=== PATIENT | female | born 1935 | race Caucasian/White ===

== ENCOUNTER 2019-03-13 19:03 | Inpatient (IN) | payer MEDICARE, OTHER ==
[~2019-03-13] VITALS: Ht 160 cm; Wt 66.7 kg
[2019-03-13 19:13] VITALS: BP 136/56
[2019-03-13] MEDS ORDERED: ASPIR 8181 MG PO (19:22)
[2019-03-13] MEDS ORDERED: CALCIUM500 M1 PO (19:23)
[2019-03-13] MEDS ORDERED: BENAZEPRIL HCL20 MG PO (19:23)
[2019-03-13] MEDS ORDERED: CLARITIN10 MG PO (19:24)
[2019-03-13] MEDS ORDERED: VITAMIN D3400 UNIT PO ×2 (19:24→19:26)
[2019-03-13] MEDS ORDERED: OMEGA-31000 M1 PO (19:24)
[2019-03-13] MEDS ORDERED: HYDROCHLOROTH12.5 M1 PO (19:24)
[2019-03-13] MEDS ORDERED: TOPROL XL100 MG PO (19:25)
[2019-03-13] MEDS ORDERED: METFORMIN HCL500 MG PO (19:25)
[2019-03-13] MEDS ORDERED: NAMENDA 10 MG T10 MG PO (19:25)
[2019-03-13] MEDS ORDERED: MIRALAX17 GM PO (19:26)
[2019-03-13] MEDS ORDERED: UNICOMPLEX M TA1 TA1 PO (19:26)
[2019-03-13] MEDS ORDERED: ZOCOR20 MG PO (19:26)
[2019-03-13] MEDS ORDERED: NORVASC5 MG PO (19:27)
[2019-03-13 19:53] LABS: HEMOGLOBIN 12.7 gm/dL (12.0-15.0); MCH 30.7 pg (26.0-34.0); MCHC 33.3 g/dL (28.0-37.0); MCV 92.2 fL (80.0-100.0); MPV 8.7 fl. (7.2-11.1); NUCLEATED RBCS 0 /100WBC; PLATELET COUNT* 301 thou/uL (150-400); RBC 4.12 mil/uL (4.20-5.00); RDW-CV 13.2 % (10.5-14.5); WBC 15.6 thou/uL (4.0-11.0)
[2019-03-13 20:03] LABS: ANION GAP 10 mmol/L (7-16); BUN 24 mg/dL (7-18); CALCIUM 9.3 mg/dL (8.5-10.1); CHLORIDE 91 mmol/L (98-107); CO2 27 mmol/L (21-32); CREATININE 1.3 mg/dL (0.6-1.3); GLUCOSE 221 mg/dL (70-99); INR 1.1; POTASSIUM 3.7 mmol/L (3.5-5.1); SODIUM 128 mmol/L (136-145)
[2019-03-13 20:13] LABS: ALBUMIN 3.7 g/dL (3.4-5.0); ALKALINE PHOSPHATASE 75 U/L (46-116); LIPASE 98 U/L (73-393); NT-PRO BRAIN NAT PEPTIDE 1801 pg/mL (<300); SGOT 14 U/L (15-37); SGPT 18 U/L (30-65); TOTAL BILIRUBIN 0.9 mg/dL (<0.1-1.0); TROPONIN-I LEVEL <0.06 ng/mL (<0.06); URIC ACID* 4.7 mg/dL (2.6-7.2)
[2019-03-13 20:14] LABS: ABSOLUTE LYMPHOCYTES 0.8 thou/uL (0.8-5.3); ABSOLUTE MONOCYTES 0.9 thou/uL (0.0-1.2); ABSOLUTE NEUTROPHILS 13.9 thou/uL (1.6-8.1); PLATELET ESTIMATE ADEQUATE
[2019-03-13 22:01] LABS: URINE BILIRUBIN NEGATIVE (Negative); URINE BLOOD TRACE (Negative); URINE CLARITY CLEAR; URINE COLOR YELLOW; URINE GLUCOSE-RANDOM TRACE (Negative); URINE KETONES TRACE (Negative); URINE LEUKOCYTES-REFLEX 1+ (Negative); URINE NITRITE-REFLEX NEGATIVE (Negative); URINE PROTEIN NEGATIVE (Negative); URINE SPECIFIC GRAVITY 1.015 (1.005-1.030); URINE UROBILINOGEN 0.2 E.U./dl (0.2-1.0)
[2019-03-13 22:07] LABS: CASTS None Seen /LPF (None Seen); MUCUS 0-3 Light strn/LPF (None Seen); SQUAMOUS 0-3 Few /LPF (0-3); URINE RBC 3-10 Few /HPF (0-2); URINE WBC-REFLEX 6-15 Few /HPF (0-5); WBC CLUMPS Few (None Seen)
[2019-03-13 22:08] LABS: CRYSTALS None Seen /LPF (None Seen)
[2019-03-13 22:50] VITALS: BP 121/47
[2019-03-13 23:06] VITALS: BP 104/54
[2019-03-14 02:00] LABS: CREATININE 1.1 mg/dL (0.6-1.3); POTASSIUM 3.5 mmol/L (3.5-5.1)
[2019-03-14 04:00] VITALS: BP 119/41
[2019-03-14 08:00] VITALS: BP 114/59
[2019-03-14 09:00] LABS: BF LYMPHOCYTES 8 %; BF MONOCYTES 1 %; BF POLYS 91 %; BF TISSUE 1 /100 WBC
[2019-03-14 09:23] LABS: BF RBC 52896 /mm3; CLARITY CLOUDY; TOTAL CELL COUNT 37344 /mm3; TOTAL VOLUME 20 ml
[2019-03-14 09:24] LABS: SOURCE LEFT KNEE
[2019-03-14 09:55] LABS: ABSOLUTE LYMPHOCYTES 1.4 thou/uL (0.8-5.3); ABSOLUTE MONOCYTES 1.1 thou/uL (0.0-1.2); BASOPHILS 0.4 %; HEMATOCRIT 32.8 % (37.0-47.0); LYMPHOCYTES 11.2 %; MCHC 33.5 g/dL (28.0-37.0); MCV 92.6 fL (80.0-100.0); MONOCYTES 8.8 %; MPV 9.1 fl. (7.2-11.1); NUCLEATED RBCS 0 /100WBC; PLATELET COUNT* 250 thou/uL (150-400); POLYS 79.6 %; RBC 3.54 mil/uL (4.20-5.00); RDW-CV 13.3 % (10.5-14.5); WBC 12.5 thou/uL (4.0-11.0)
[2019-03-14 11:30] VITALS: BP 121/50
--- NOTE | 2019-03-14 11:49 | EKG ---
[place] [address] ELECTROCARDIOGRAM REPORT Name: MICHAEL HYATT Room: [address] ADM IN .R.#: [id number] Admission: 03/13/19 Attend Phys: Lizbeth Figueroa MD Discharge: Date of : 37 Report #: [id number] THIS REPORT FOR: //name// [facility] ED Test Date: 2019-03-13 Test Time: 20:21:47 Pat Name: MICHAEL HYATT Department: Room: [facility] Gender: F Powerhouse Tender: AJ : 1935 Requested By: Matthieu Strong Order Number: [id number] MD: Vern Celis Measurements Intervals [place] Rate: 73 P: 57 FL: 166 QRS: -27 QRSD: 88 T: 25 QT: 402 QTc: 443 Interpretive Statements Sinus rhythm Atrial premature complexes in couplets Left ventricular hypertrophy Baseline wander in lead(s) III No previous ECG available for comparison Electronically Signed On 03-14-2019 11:49:43 CDT by Vern Celis [email or web address] <ELECTRONICALLY SIGNED> By: Vern Celis MD, [facility] 03/14/19 1149 20 20 Vern Celis MD, [facility] /EPI
[2019-03-14 16:31] VITALS: BP 145/48
[2019-03-14 19:30] VITALS: BP 136/53
[2019-03-15] VITALS: BP 105/40
[2019-03-15 04:00] VITALS: BP 136/51
[2019-03-15 04:43] LABS: ABSOLUTE BASOPHILS 0.1 thou/uL (0.0-0.2); ABSOLUTE EOSINOPHILS 0.1 thou/uL (0.0-0.7); ABSOLUTE LYMPHOCYTES 1.1 thou/uL (0.8-5.3); ABSOLUTE MONOCYTES 0.8 thou/uL (0.0-1.2); ABSOLUTE NEUTROPHILS 7.3 thou/uL (1.6-8.1); BASOPHILS 0.6 %; EOSINOPHILS 0.7 %; HEMATOCRIT 32.4 % (37.0-47.0); HEMOGLOBIN 11.1 gm/dL (12.0-15.0); LYMPHOCYTES 11.7 %; MCH 31.6 pg (26.0-34.0); MCHC 34.1 g/dL (28.0-37.0); MCV 92.7 fL (80.0-100.0); MONOCYTES 8.2 %; MPV 8.4 fl. (7.2-11.1); NUCLEATED RBCS 0 /100WBC; PLATELET COUNT* 227 thou/uL (150-400); POLYS 78.8 %; RDW-CV 13.7 % (10.5-14.5); WBC 9.2 thou/uL (4.0-11.0)
[2019-03-15 05:03] LABS: CREATININE 0.9 mg/dL (0.6-1.3); POTASSIUM 3.1 mmol/L (3.5-5.1)
[2019-03-15 07:20] VITALS: BP 145/56
[2019-03-15 11:35] LABS: SOURCE KNEE JOINT
[2019-03-15 12:27] VITALS: BP 133/58
[2019-03-15 15:52] VITALS: BP 161/75
[2019-03-15 19:30] VITALS: BP 141/56
[2019-03-16] VITALS: BP 136/56
[2019-03-16 04:00] VITALS: BP 128/71
[2019-03-16 04:34] LABS: HEMATOCRIT 34.2 % (37.0-47.0); HEMOGLOBIN 11.4 gm/dL (12.0-15.0); MCH 30.8 pg (26.0-34.0); MCHC 33.2 g/dL (28.0-37.0); MCV 92.7 fL (80.0-100.0); NUCLEATED RBCS 0 /100WBC; PLATELET COUNT* 262 thou/uL (150-400); RDW-CV 13.4 % (10.5-14.5)
[2019-03-16 04:41] LABS: CALCIUM 7.9 mg/dL (8.5-10.1); CREATININE 0.8 mg/dL (0.6-1.3)
[2019-03-16 04:43] LABS: POTASSIUM 4.3 mmol/L (3.5-5.1)
[2019-03-16 05:36] LABS: GLYCOHEMOGLOBIN (HGB A1C) 5.9 % (4.8-5.6)
[2019-03-16 06:18] LABS: ABSOLUTE LYMPHOCYTES 0.6 thou/uL (0.8-5.3); ABSOLUTE MONOCYTES 0.2 thou/uL (0.0-1.2); ABSOLUTE NEUTROPHILS 7.2 thou/uL (1.6-8.1); ATYPICAL LYMPHS 1 %
[2019-03-16 06:24] LABS: PLATELET ESTIMATE ADEQUATE
[2019-03-16 06:25] LABS: LARGE PLATELETS RARE
[2019-03-16 08:00] VITALS: BP 179/80
[2019-03-16 11:38] VITALS: BP 158/59
[2019-03-16 21:00] VITALS: BP 147/61
[2019-03-17] VITALS: BP 117/60
[2019-03-17 04:30] VITALS: BP 155/64
--- NOTE | 2019-03-17 07:10 | CON ---
[address] [address] CONSULTATION Name: MICHAEL HYATT Room: [address] IN .R.#: [id number] Admission: 03/13/19 Attend Phys: Lizbeth Figueroa MD Discharge: Date of : 37 Report #: [id number] THIS REPORT FOR: //name// CC: Garcia Figueroa DATE OF SERVICE: 03/14/2019 INFECTIOUS DISEASE CONSULTATION ATTENDING PHYSICIAN: Dr. Figueroa. REASON FOR EVALUATION: Suspected left knee septic arthritis. HISTORY OF PRESENT ILLNESS: Chart reviewed, patient examined. This is an 84-year-old woman with known diabetes mellitus, has a history of dementia, who presented with a left knee related pain. She does not recollect any sort of injury or trauma. It became progressively more painful for her and was unable to bear weight. Initial evaluation including imaging showed no fracture or dislocation. Sed rate was 4 and elevated lactic acid of 3.6. Urinalysis did show moderate to marked pyuria with some bacteriuria. She later had an aspirate, which was markedly abnormal including red and cloudy in appearance, total cell count of 37,344, RBC of 52,896, 91% polys, 8% lymphs. Gram stain showed no organisms, moderate white cells. Cultures pending. Blood cultures are sterile thus far. Due to concern, empirically placed on antimicrobial therapy with vancomycin and ceftriaxone. At this point, she has persistent pain that is evident. There is some degree of dementia with some memory deficits. She denies significant pulmonary related complaints. She had some fevers to 100.6. ALLERGIES: CAFFEINE, ASPIRIN, NORGESIC, AZELASTINE. CURRENT MEDICATIONS: Include pantoprazole, enoxaparin, ceftriaxone, docusate sodium, vancomycin, ondansetron, morphine as needed. PAST MEDICAL HISTORY: As noted above, diabetes mellitus, hypertension, hyperlipidemia, arthritis, atrial fibrillation, dementia. SOCIAL HISTORY: Nonsmoker, no ethanol, no illicit drug use. FAMILY HISTORY: Noncontributory. REVIEW OF SYSTEMS: Somewhat limited due to her dementia. PHYSICAL EXAMINATION: GENERAL: She has somewhat flattened affect, mild to moderate distress, [place] [address] CONSULTATION Name: MICHAEL HYATT Room: [address] IN [facility]#: [id number] Admission: 03/13/19 Attend Phys: Lizbeth Figueroa MD Discharge: Date of : 37 Report #: [id number] undernourished, chronically ill. VITAL SIGNS: Temperature 98.4, pulse 55, respirations 20, blood pressure 120/50. SKIN: Warm, dry, no rashes. HEENT: Normocephalic. Extraocular muscles intact. NECK: Supple. LUNGS: Diminished breath sounds. HEART: Bradycardic, regular, has soft systolic murmur. ABDOMEN: Soft. There are no peritoneal signs. Nontender. EXTREMITIES: Left knee has a compressive dressing. GENITOURINARY AND RECTAL: Deferred. LABORATORY DATA: ____ CRP 86.24. CBC: White count of 12.5, H and H 11.0 and 32.8 and platelets of 250. Fluid aspirate from the knee as noted above, red and cloudy, 37,344 white cells, 91% polys, 8% lymphs, red count of 52,896. Cultures pending. Blood cultures sterile thus far. Lactic acid initially 3.6, repeat was serially 2.8 and then 1.7. Sed rate of 4. ASSESSMENT AND PLAN: Inflammatory process involving the left knee, certainly a septic arthritis is in the differential. Agree with empiric antimicrobial therapy. We will await culture results. Cannot entirely exclude a hemarthrosis, although the white count seems to be somewhat higher ____ expected. Has no particular risk factors. Certainly, will await blood cultures. If positive, ____ a possible endovascular type infection as well. At this point, she is not overtly toxic. We will monitor expectantly. <ELECTRONICALLY SIGNED> By: Marino Roberts MD 03/17/19 0710 [id number] [id number] Roberts MD /nt
[2019-03-17 08:00] VITALS: BP 175/90
[2019-03-17 08:47] VITALS: BP 175/90
[2019-03-17] MEDS ORDERED: NEXIUM40 MG PO (14:02)
[2019-03-17] MEDS ORDERED: COLCHICINE0.6 MG PO (14:03)
[2019-03-17] MEDS ORDERED: PREDNISONE 20 M20 MG PO (14:04)
[2019-03-17] MEDS ORDERED: ATIVAN0.5 MG PO (14:05)
[2019-03-17 14:53] VITALS: BP 175/90
== END 2019-03-17 16:55 | disposition home or self-care (01) | DRG 553 ==
LOC: M.ERS 19:03 → M.2W 21:00 → M.TBA-ER 21:00 → M.2W 22:14
PROVIDERS: Family Medicine; Internal Medicine; Orthopaedic Surgery; ADMIT Internal Medicine
PROC: 0S9D3ZX Drainage of Left Knee Joint, Percutaneous Approach, Diagnostic (ICD-10-PCS; principal; 2019-03-14)
DX: M11.262 Other chondrocalcinosis, left knee (principal); G93.41 Metabolic encephalopathy; E11.22 Type 2 diabetes mellitus with diabetic chronic kidney disease; I12.9 Hypertensive chronic kidney disease with stage 1 through stage 4 chronic kidney disease, or unspecified chronic kidney disease; N18.3 Chronic kidney disease, stage 3 (moderate); E87.6 Hypokalemia; T38.0X5A Adverse effect of glucocorticoids and synthetic analogues, initial encounter; E83.42 Hypomagnesemia; M25.462 Effusion, left knee; M17.12 Unilateral primary osteoarthritis, left knee; E78.5 Hyperlipidemia, unspecified; I48.91 Unspecified atrial fibrillation; F03.90 Unspecified dementia, unspecified severity, without behavioral disturbance, psychotic disturbance, mood disturbance, and anxiety; Z79.82 Long term (current) use of aspirin; Z88.6 Allergy status to analgesic agent; Z88.8 Allergy status to other drugs, medicaments and biological substances; Z79.84 Long term (current) use of oral hypoglycemic drugs; Y92.89 Other specified places as the place of occurrence of the external cause

== ENCOUNTER 2019-05-19 16:26 | Inpatient (IN) | payer MEDICARE, OTHER ==
[~2019-05-19] VITALS: Ht 157.5 cm; Wt 74.4 kg
[~2019-05-19 16:26] MED LIST: ASPIR 8181 MG PO; ATIVAN0.5 MG PO; BENAZEPRIL HCL20 MG PO; CALCIUM500 M1 PO; CLARITIN10 MG PO; COLCHICINE0.6 MG PO; HYDROCHLOROTH12.5 M1 PO; METFORMIN HCL500 MG PO; MIRALAX17 GM PO; NAMENDA 10 MG T10 MG PO; NEXIUM40 MG PO; NORVASC5 MG PO; OMEGA-31000 M1 PO; PREDNISONE 20 M20 MG PO; TOPROL XL100 MG PO; UNICOMPLEX M TA1 TA1 PO; VITAMIN D3400 UNIT PO; ZOCOR20 MG PO
[2019-05-19 16:40] VITALS: BP 164/63
[2019-05-19 16:43] LABS: URINE BILIRUBIN NEGATIVE (Negative); URINE BLOOD TRACE (Negative); URINE CLARITY CLEAR; URINE COLOR YELLOW; URINE GLUCOSE-RANDOM NEGATIVE (Negative); URINE KETONES NEGATIVE (Negative); URINE LEUKOCYTES-REFLEX 1+ (Negative); URINE NITRITE-REFLEX NEGATIVE (Negative); URINE PROTEIN NEGATIVE (Negative); URINE UROBILINOGEN 0.2 E.U./dl (0.2-1.0)
[2019-05-19 16:51] LABS: SQUAMOUS 0-3 Few /LPF (0-3)
[2019-05-19 16:53] LABS: BACTERIA-REFLEX 1-9 Few /HPF (None Seen); CASTS None Seen /LPF (None Seen); CRYSTALS None Seen /LPF (None Seen); MUCUS None Seen strn/LPF (None Seen); URINE RBC 0-2 Rare /HPF (0-2); URINE WBC-REFLEX 6-15 Few /HPF (0-5)
[2019-05-19 16:55] LABS: ABSOLUTE BASOPHILS 0.1 thou/uL (0.0-0.2); ABSOLUTE EOSINOPHILS 0.2 thou/uL (0.0-0.7); ABSOLUTE LYMPHOCYTES 1.6 thou/uL (0.8-5.3); ABSOLUTE MONOCYTES 0.4 thou/uL (0.0-1.2); ABSOLUTE NEUTROPHILS 5.7 thou/uL (1.6-8.1); BASOPHILS 0.8 %; EOSINOPHILS 2.3 %; HEMATOCRIT 37.8 % (37.0-47.0); LYMPHOCYTES 20.4 %; MCH 30.8 pg (26.0-34.0); MCHC 34.3 g/dL (28.0-37.0); MCV 89.8 fL (80.0-100.0); MONOCYTES 4.8 %; MPV 8.1 fl. (7.2-11.1); NUCLEATED RBCS 0 /100WBC; PLATELET COUNT* 326 thou/uL (150-400); POLYS 71.7 %; RBC 4.21 mil/uL (4.20-5.00); RDW-CV 14.2 % (10.5-14.5); WBC 7.9 thou/uL (4.0-11.0)
[2019-05-19 17:05] LABS: APTT 24.6 Seconds (25.0-31.3)
[2019-05-19 17:06] LABS: CALCIUM 9.7 mg/dL (8.5-10.1); POTASSIUM 3.8 mmol/L (3.5-5.1)
--- NOTE | 2019-05-19 17:12 | NUR ---
PT REQUESTING A TURKEY SANDWICH. THIS NURSE ASKED THE PROVIDER IF PATIENT COULD EAT. DR. REYNOLDS APPROVED. THIS NURSE GAVE THE PATIENT A SANDWICH AND A GLASS OF WATER.
[2019-05-19 17:20] LABS: ALBUMIN 3.9 g/dL (3.4-5.0); TOTAL BILIRUBIN 0.3 mg/dL (<0.1-1.0); TOTAL PROTEIN 7.1 g/dL (6.4-8.2)
--- NOTE | 2019-05-19 17:44 | NUR ---
TRISHA NOTIFIED UPON PT RETURN FROM CT. PT WAS NOT CONNECTED TO MONITOR SHE WAS NOT CONNECTED PRIOR TO GOING TO CT
[2019-05-19 19:30] VITALS: BP 167/62
[2019-05-19 20:43] VITALS: BP 155/56
--- NOTE | 2019-05-20 05:32 | NUR ---
PT ARRIVED AT 1999 WITH FAMILY. ORIENTED TO SELF, PLACE, CONFUSED AND FORGETFUL. VSS RA. ADMISSION HISTORY/ASSESSMENT COMPLETED. NO C/O PAIN. ATIVAN GIVEN FOR ANXIETY PER FAMILY REQUEST. PT SLEEPING THROUGH THE NIGHT. DAUGHTER AT BEDSIDE. WILL CONTINUE TO MONITOR.
[2019-05-20 07:20] VITALS: BP 148/57
--- NOTE | 2019-05-20 08:46 | EKG ---
[place] [address] ELECTROCARDIOGRAM REPORT Name: MICHAEL HYATT Room: [address] ADM IN M.R.#: [id number] Admission: 05/19/19 Attend Phys: Girish Anton Discharge: Date of : 37 Report #: [id number] THIS REPORT FOR: //name// [facility] ED Test Date: 2019-05-19 Test Time: 18:44:51 Pat Name: MICHAEL HYATT Department: Room: [facility] Gender: F Night Assistant: DHRUV : 1935 Requested By: Matthieu Strong Order Number: [id number] MD: Curtis Keith Measurements Intervals [address] Rate: 63 P: 81 OK: 162 QRS: -23 QRSD: 89 T: 80 QT: 425 QTc: 436 Interpretive Statements Sinus rhythm Ventricular premature complex Borderline left axis deviation Compared to ECG 03/13/2019 20:21:47 Ventricular premature complex(es) now present Atrial premature complex(es) no longer present Left ventricular hypertrophy no longer present Electronically Signed On 05-20-2019 8:46:08 CDT by Curtis Keith [email or web address] <ELECTRONICALLY SIGNED> By: Curtis Keith MD, FACC 05/20/19 0846 1844 43 Curtis Keith MD, FACC /EPI
--- NOTE | 2019-05-20 14:16 | NUR ---
ABELARDO called and spoke with admissions/social work program coordinator at [facility]; pt [facility] in [facility]. [facility] explained pt did need SNF for a while after pt return to [facility] after last hospitalization. Pt has family support. Pt has RW. ABELARDO faxed [facility] info/update/referral in preparation for pt to dc home to [facility] when pt is ready to dc. ABELARDO to continue to follow to assist with safe dc planning.
[2019-05-20 16:49] VITALS: BP 144/60
--- NOTE | 2019-05-20 16:52 | NUR ---
ASSESSMENT COMPLETE. PT ALERT AND ORIENTED TO SELF. PT IS FORGETFUL, HX OF DEMENTIA. PT GIVEN IV ABX FOR UTI. PT AND FAMILY EDUCATED ON PLAN OF CARE WITH DR MIRANDA THIS AM. DAUGHTER AT BEDSIDE THROUGHOUT THE DAY. PT IS ON ROOM AIR, VSS. PT IS UP STANDBY ASSIST WITH WALKER. BED ALARM IN PLACE. SEE ASSESSMENT AND VITALS FOR OTHER DETAILS, CALL LIGHT WITHIN REACH. WILL CONTINUE PLAN OF CARE
[2019-05-20 19:45] VITALS: BP 140/52
--- NOTE | 2019-05-21 05:38 | NUR ---
PT SLEPT WELL OVERNIGHT WITHOUT COMPLAINTS. DTR AT BEDSIDE. RFA SLIV. BAND AID TO L KNEE AT SITE OF STEROID INJECTION WITH SCANT AMOUNT DRIED DRAINAGE. CALL LITE IN EASY REACH, BED ALARM ON FOR SAFETY. UP WITH WALKER, SBA AND GAIT BELT. DNR. NO LABS THIS MORNING. PT OT.
[2019-05-21 08:00] VITALS: BP 129/57
--- NOTE | 2019-05-21 10:28 | NUR ---
PT.'S DAUGHTER POLITELY BUT ADAMANTLY REFUSES A CHAIR ALARM FOR HER MOTHER AND SAYS SHE WILL STAY WITH THE PT.
[2019-05-21 16:00] VITALS: BP 156/54
--- NOTE | 2019-05-21 19:00 | NUR ---
PATIENT PLEASANT AND COOPERATIVE THRU SHIFT. FAMILY MEMBERS IN RM W/ PATIENT MOST OF SHIFT. PATIENT REORIENTED PRN. PATIENT COOPERATIVE W/ DISTRACTION ACTIVITIES TO STAY BUSY, SUCH FOLDING TOWELS AND WRITING IN A BOOK. GAIT NOTED SLOW AND STEADY, USING FWW WHEN REMINDED. HRLY ROUNDS DONE. IV SL NOTED WNL. ~TJRN
[2019-05-21 20:45] VITALS: BP 144/54
[2019-05-22 04:38] LABS: HEMATOCRIT 35.4 % (37.0-47.0); HEMOGLOBIN 11.9 gm/dL (12.0-15.0); MCH 30.3 pg (26.0-34.0); MCHC 33.7 g/dL (28.0-37.0); MCV 89.9 fL (80.0-100.0); MPV 8.5 fl. (7.2-11.1); RBC 3.94 mil/uL (4.20-5.00); RDW-CV 14.7 % (10.5-14.5); WBC 11.9 thou/uL (4.0-11.0)
[2019-05-22 04:52] LABS: CALCIUM 9.8 mg/dL (8.5-10.1); MAGNESIUM 1.5 mg/dL (1.8-2.4); POTASSIUM 3.8 mmol/L (3.5-5.1)
--- NOTE | 2019-05-22 06:12 | NUR ---
Patient is confused but cooperative. Vitals are stable. She is up with assist x 1 and walker to bathroom. Daughter is at bedside. She does get up unassisted if her daughter isn't in the room. This am her magnesium was low and did require magnesium replacement. She has slept well.
[2019-05-22 09:00] VITALS: BP 156/62
[2019-05-22 16:00] VITALS: BP 147/50
--- NOTE | 2019-05-22 16:34 | NUR ---
SW called [facility] and informed of pt most likely ready to dc back home on Sunday; they are prepared to accept pt back to [facility] environment but would need more information and notification/orders if recommendation is SNF. SW to continue to follow to assist with finalizing safe dc plan.
[2019-05-22 21:00] VITALS: BP 129/43
--- NOTE | 2019-05-23 05:59 | NUR ---
Oriented x 2 but cooperative. She does well walking to bathroom with walker and stand by assist. Daughter is at bedside. Pts vitals are stable. Her Mg+ was low and it was replaced last evening. Mg+ draw after replacement was in normal range. She has slept well.
[2019-05-23 08:00] VITALS: BP 147/68
[2019-05-23 09:56] LABS: ABSOLUTE BASOPHILS 0.1 thou/uL (0.0-0.2); ABSOLUTE EOSINOPHILS 0.1 thou/uL (0.0-0.7); ABSOLUTE LYMPHOCYTES 2.1 thou/uL (0.8-5.3); ABSOLUTE MONOCYTES 0.5 thou/uL (0.0-1.2); ABSOLUTE NEUTROPHILS 7.2 thou/uL (1.6-8.1); BASOPHILS 0.7 %; EOSINOPHILS 1.4 %; HEMATOCRIT 33.2 % (37.0-47.0); HEMOGLOBIN 11.4 gm/dL (12.0-15.0); LYMPHOCYTES 20.6 %; MCH 30.9 pg (26.0-34.0); MCHC 34.4 g/dL (28.0-37.0); MCV 89.8 fL (80.0-100.0); MONOCYTES 5.3 %; MPV 8.9 fl. (7.2-11.1); NUCLEATED RBCS 0 /100WBC; PLATELET COUNT* 290 thou/uL (150-400); RBC 3.69 mil/uL (4.20-5.00); RDW-CV 14.8 % (10.5-14.5)
[2019-05-23 10:04] LABS: ALBUMIN 3.4 g/dL (3.4-5.0); CALCIUM 9.2 mg/dL (8.5-10.1); POTASSIUM 3.6 mmol/L (3.5-5.1); TOTAL BILIRUBIN 0.2 mg/dL (<0.1-1.0); TOTAL PROTEIN 6.2 g/dL (6.4-8.2)
--- NOTE | 2019-05-23 10:50 | NUR ---
Pt to dc home to [facility] today. ABELARDO spoke with pt dtr who plans to provide pt ride home around Noon. Pt nurse aware. ABELARDO called and spoke with Karon at [facility] who are accepting and expecting pt home to [facility] today. ABELARDO faxed dc orders/med list and therapy notes. [facility] to provide OP therapy follow up.
[2019-05-23] MEDS ORDERED: CEFDINIR300 MG PO (11:43)
[2019-05-23 11:50] VITALS: BP 147/68
--- NOTE | 2019-05-23 14:08 | NUR ---
PAITENTS DAUGHTER UP TO TAKE HER BACK TO ASSISSTED LIVING. IV REMOVED. ALERT AND ORIENTED TIMES FOUR WITH CONFUSION. MINOR COMPLAINTS OF PAIN, CONTROLLED WITH PO MEDICATIONS. APPELLATE COURT CLERK AND HOURLY ROUNDING COMPLETED CHARTED.
== END 2019-05-23 14:20 | DRG 564 ==
LOC: M.ERS 16:26 → M.TBA-ER 17:33 → M.3W 17:33
PROVIDERS: Family Medicine; Internal Medicine; ADMIT Family Medicine
PROC: 3E0U33Z Introduction of Anti-inflammatory into Joints, Percutaneous Approach (ICD-10-PCS; principal; 2019-05-20)
DX: M25.462 Effusion, left knee (principal); G92 Toxic encephalopathy; N39.0 Urinary tract infection, site not specified; M17.12 Unilateral primary osteoarthritis, left knee; F03.90 Unspecified dementia, unspecified severity, without behavioral disturbance, psychotic disturbance, mood disturbance, and anxiety; E11.9 Type 2 diabetes mellitus without complications; E78.5 Hyperlipidemia, unspecified; I10 Essential (primary) hypertension; I48.91 Unspecified atrial fibrillation; B96.89 Other specified bacterial agents as the cause of diseases classified elsewhere; K62.3 Rectal prolapse; Z79.82 Long term (current) use of aspirin; Z79.899 Other long term (current) drug therapy; Z88.8 Allergy status to other drugs, medicaments and biological substances

== ENCOUNTER 2019-09-12 22:40 | Inpatient (IN) | payer MEDICARE, OTHER ==
[~2019-09-12] VITALS: Ht 160 cm; Wt 66.9 kg
[~2019-09-12 22:40] MED LIST changes: +CEFDINIR300 MG PO
[2019-09-12 22:50] VITALS: BP 143/72
[2019-09-12] MEDS ORDERED: SERTRALINE HCL100 MG PO (22:58)
[2019-09-12] MEDS ORDERED: ACETAMINOPHEN500 MG PO (22:59)
[2019-09-12] MEDS ORDERED: AZO CRANBERRY250 MG PO (22:59)
[2019-09-12] MEDS ORDERED: LOPERAMIDE2 MG PO (23:00)
--- NOTE | 2019-09-12 23:07 | NUR ---
PT HAS DEMENTIA NAD HAS BEEN ON HOSPICE PRIOR TO COMING TO HOSPITAL. PT NORMALLY WALKS WITH WALKER AT HOME. PT WAS ABLE TOHELP TRANSFER FROM W/C TO HOSPITAL BED WITH MODERATE HELP
--- NOTE | 2019-09-12 23:07 | NUR ---
PASSED SWALLOW SCREEN AT THIS TIME
[2019-09-12 23:19] LABS: ABSOLUTE BASOPHILS 0.1 thou/uL (0.0-0.2); ABSOLUTE EOSINOPHILS 0.2 thou/uL (0.0-0.7); ABSOLUTE MONOCYTES 0.6 thou/uL (0.0-1.2); ABSOLUTE NEUTROPHILS 5.6 thou/uL (1.6-8.1); BASOPHILS 0.9 %; EOSINOPHILS 2.6 %; HEMATOCRIT 36.4 % (37.0-47.0); HEMOGLOBIN 12.2 gm/dL (12.0-15.0); MCH 30.3 pg (26.0-34.0); MCHC 33.6 g/dL (28.0-37.0); MCV 90.1 fL (80.0-100.0); MONOCYTES 7.4 %; MPV 9.2 fl. (7.2-11.1); NUCLEATED RBCS 0 /100WBC; PLATELET COUNT* 276 thou/uL (150-400); POLYS 66.1 %; RBC 4.04 mil/uL (4.20-5.00); RDW-CV 14.3 % (10.5-14.5); WBC 8.5 thou/uL (4.0-11.0)
[2019-09-12 23:21] LABS: CALCIUM 8.9 mg/dL (8.5-10.1); CREATININE 1.1 mg/dL (0.6-1.3); POTASSIUM 3.9 mmol/L (3.5-5.1)
[2019-09-12 23:37] LABS: ALBUMIN 3.9 g/dL (3.4-5.0); TOTAL BILIRUBIN 0.3 mg/dL (<0.1-1.0)
[2019-09-13] VITALS (7 sets, daily range): BP systolic 112–179; BP diastolic 39–67
[2019-09-13 00:01] LABS: URINE BILIRUBIN NEGATIVE (Negative); URINE BLOOD NEGATIVE (Negative); URINE CLARITY CLEAR; URINE COLOR YELLOW; URINE GLUCOSE-RANDOM NEGATIVE (Negative); URINE KETONES NEGATIVE (Negative); URINE LEUKOCYTES-REFLEX NEGATIVE (Negative); URINE NITRITE-REFLEX NEGATIVE (Negative); URINE PROTEIN NEGATIVE (Negative); URINE UROBILINOGEN 0.2 E.U./dl (0.2-1.0)
[2019-09-13] MEDS ORDERED: NEXIUM 40 MG CA40 M1 PO (01:55)
[2019-09-13] MEDS ORDERED: ACETAMINOPHEN500 M1 PO (01:57)
[2019-09-13] MEDS ORDERED: TYLENOL325 M1 PO (01:58)
[2019-09-13] MEDS ORDERED: AZO CRANBERRY250 MG PO (01:59)
[2019-09-13] MEDS ORDERED: LOPERAMIDE2 MG PO (02:00)
--- NOTE | 2019-09-13 03:12 | NUR ---
PT ALERT ORIENTED TO SELF ONLY. NIHSS 2 BC PT COULD NOT ANSWER AGE AND MONTH CORRECTLY. HX OF DEMENTIA. TELEMETRY SHOWS SR. NS AT 100MLS/HR. LACTIC ACID STILL 2.3. TROPONINS WNL. FAMILY AT BS WITH PT.
--- NOTE | 2019-09-13 08:37 | NUR ---
ASSUMED PT. CARE AND RECEIVED REPORT AT 0730. PT A/O TO SELF, VSS, DENIES CURRENT PAIN/SOB ON RA. FULL ASSESSMENT COMPLETED, REFER TO CHARTING. NO CHANGE IN NIH, PT. DOES NOT SHOW ANY DEFICIT OTHER THAN UNABLE TO NAME DATE/AGE- BUT APPEARS TO BE BASELINE WITH DEMENTIA. PT. DAUGHTER AT BEDSIDE, AWARE OF PLAN OF CARE FOR MRI/NEURO CONSULT TODAY. PT. INCONT. OF LARGE AMOUNT OF URINE. ASSISTED WITH CLEAN UP AND UP TO CHAIR FOR BREAKFAST.CALL LIGHT IN REACH, FALL PRECAUTIONS IN PLACE, WILL CONTINUE WITH PLAN OF CARE.
[2019-09-13] MEDS ORDERED: SERTRALINE HCL100 MG PO (21:06)
[2019-09-14] VITALS: BP 144/59
[2019-09-14 04:00] VITALS: BP 172/71
--- NOTE | 2019-09-14 04:35 | NUR ---
ASSUMED PT CARE AT APPROX 1930. PT IS AWAKE AND ORIENTED TO SELF. CLIENT RESOLUTION SPECIALIST IN PLACE TRACING SB. PT DENIES PAIN/DISCOMFORT. ASSESSMENT DONE AND CHARTED. NIHSS DONE CHARTED. PT IS ABLE TO SLEEP MOST OF THE NIGHT. CALL LIGHT WITHIN REACH. POSITION CHANGES DONE Q2H. HIGH FALL PRECAUTIONS IN PLACE. HOURLY ROUNDING DONE FOR PT SAFETY.
[2019-09-14 04:50] LABS: HEMATOCRIT 33.3 % (37.0-47.0); HEMOGLOBIN 11.3 gm/dL (12.0-15.0); MCH 30.3 pg (26.0-34.0); MCHC 33.8 g/dL (28.0-37.0); MCV 89.6 fL (80.0-100.0); MPV 8.9 fl. (7.2-11.1); RBC 3.72 mil/uL (4.20-5.00); RDW-CV 13.8 % (10.5-14.5); WBC 6.9 thou/uL (4.0-11.0)
[2019-09-14 05:16] LABS: ALBUMIN 3.3 g/dL (3.4-5.0); ALKALINE PHOSPHATASE 71 U/L (46-116); ANION GAP 6 mmol/L (7-16); BUN 15 mg/dL (7-18); CHLORIDE 102 mmol/L (98-107); CHOLESTEROL 120 mg/dL (<200); CO2 32 mmol/L (21-32); GLUCOSE 115 mg/dL (70-99); HDL CHOLESTEROL 67 mg/dL (>40); LDL CHOLESTEROL 43 mg/dL (<100); POTASSIUM 3.1 mmol/L (3.5-5.1); SGOT 17 U/L (15-37); SGPT 22 U/L (30-65); SODIUM 140 mmol/L (136-145); TC:HDL 1.8 Ratio (Not establshd); TOTAL BILIRUBIN 0.4 mg/dL (<0.1-1.0); TOTAL PROTEIN 6.1 g/dL (6.4-8.2); TRIGLYCERIDE 54 mg/dL (<150); VLDL 11 mg/dL (<40)
[2019-09-14 05:19] LABS: SERUM ASSESSMENT Clear
[2019-09-14 08:00] VITALS: BP 124/58
--- NOTE | 2019-09-14 11:43 | NUR ---
0730 ASSUMED CARE OF PATIENT. PLEASE SEE DOCUMENTED ASSESSMENT. AND NIH SCORING. DAUGHTER IN ROOM WITH PATIENT.
[2019-09-14 13:45] VITALS: BP 139/50
--- NOTE | 2019-09-14 15:03 | EKG ---
[place] [address] ELECTROCARDIOGRAM REPORT Name: MICHAEL HYATT Room: [address] ADM IN M.R.#: [id number] Admission: 09/12/19 Attend Phys: Girish fenton Sa Discharge: Date of : 37 Date of Service: 09/12/19 2247 Report #: [id number] THIS REPORT FOR: //name// [facility] ED Test Date: 2019-09-12 Test Time: 22:47:23 Pat Name: MICHAEL HYATT Department: Room: [facility] Gender: F Botany Technician: LORENZO : 1935 Requested By: Wenceslao López Order Number: [id number] MD: Yunior Lewis Measurements Intervals [place] Rate: 67 P: 49 [place]: 163 QRS: -19 QRSD: 92 T: 88 QT: 412 QTc: 435 Interpretive Statements Sinus rhythm Atrial premature complex Abnormal R-wave progression, late transition Probable LVH with secondary repol abnrm Compared to ECG 05/19/2019 18:44:51 Atrial premature complex(es) now present Ventricular premature complex(es) no longer present Electronically Signed On 09-14-2019 15:02:32 NURSING EDUCATOR by Yunior Lewis [email or web address] <ELECTRONICALLY SIGNED> By: Ayad Lewis MD, [facility] 09/14/19 1502 46 46 Ayad Lewis MD, [facility] /EPI
[2019-09-14 16:05] VITALS: BP 152/50
[2019-09-14 20:00] VITALS: BP 148/57
[2019-09-15] VITALS: BP 126/35
[2019-09-15 02:06] LABS: GLYCOHEMOGLOBIN (HGB A1C) 6.2 % (4.8-5.6)
--- NOTE | 2019-09-15 03:53 | NUR ---
ASSUMED PT CARE AT APPROX 1930. PT IS AWAKE AND ORIENTED TO SELF. ORGAN BUILDER IN PLACE TRACING SB. PT DENIES PAIN/DISCOMFORT. ASSESSMENT DONE AND CHARTED. NIHSS DONE CHARTED. PT IS ABLE TO SLEEP MOST OF THE NIGHT. CALL LIGHT WITHIN REACH. HIGH FALL PRECAUTIONS IN PLACE. WILL CONTINUE TO MONITOR PT.
[2019-09-15 04:00] VITALS: BP 147/39
[2019-09-15 08:00] VITALS: BP 133/63
--- NOTE | 2019-09-15 10:18 | NUR ---
CM spoke with Pt's dtr, Tiffany [phone], in room at bedside. Per dtr, Pt has dementia. Resides at [facility] p:[phone] f:[phone]. Pt is currently with [facility] and plan is to resume hospice at dc. Pt uses a walker for mobility. [facility] staff provide prompts for dressing and bathing, staff administer meds and meals are provided. Dtr does not wants skilled at dc and is available to provide transportation back to [facility]. CM to fax referral and orders once available. Possible dc back to [facility] today post Echo. Following.
[2019-09-15 12:00] VITALS: BP 136/45
[2019-09-15 13:08] LABS: GLOBULIN TOTAL 2.6 g/dL (2.2-3.9); M-SPIKE Not Observed g/dL (Not Observed)
--- NOTE | 2019-09-15 17:12 | NUR ---
I have reviewed the documentation by JUAN DANIEL NELSON from 09/15/19 to 09/15/19 and I concur with it. ESTIVEN PACE
[2019-09-15] MEDS ORDERED: METFORMIN HCL500 MG PO (17:40)
[2019-09-15] MEDS ORDERED: ASPIRIN EC325 M1 PO (17:40)
[2019-09-15 18:00] VITALS: BP 136/45
--- NOTE | 2019-09-15 19:00 | NUR ---
ASSUMED PT CARE AT 0730. ASSESSMENT COMPLETED CHARTED. UNABLE TO MAKE NEEDS KNOWN, DAUGHTER AT BEDSIDE. UP IN RECLINER MOST OF THE DAY. DAUGHTER HELPS WITH MOST CARES. PT HAD D/C ORDERS AND WAS WAITING FOR RESULTS OF ECHO. NO RESULTS OF SHIFT CHANGE SO LET PT STAY OVERNIGHT. NO C/O PAIN OR DISCOMFORT. UP WITH SBA TO WALKER. WILL CONTINUE TO MONITOR.
--- NOTE | 2019-09-15 20:14 | 2DMMODE ---
[place] [address] 2 D/M-MODE ECHOCARDIOGRAM Name: MICHAEL HYATT Room: [address] IN M.R.#: [id number] Admission: 09/12/19 Attend Phys: Girish fenton Sa Discharge: Date of : 37 Date of Service: 09/15/19 1700 Report #: [id number] THIS REPORT FOR: cc: Garcia Faustin,Garcia Sierra,Vern May MD [facility] ~ APPROVED REPORT Study performed: 09/15/2019 15:07:47 EXAM: Comprehensive 2D, Doppler, and color-flow Echocardiogram Patient Location: Bedside BSA: 1.69 HR: 47 bpm BP: 147/39 mmHg Other Information Study Quality: Good Indications Arrhythmia CVA/TIA Echo Enhancing Agent Indication: Rule out Shunt Agent(s) / Amount(s) Used: Agitated Saline cc 2D Dimensions IVSd: 10.62 (7-11mm) LVOT Diam: 20.90 (18-24mm) LVDd: 46.40 mm PWd: 11.81 (7-11mm) Ascending Ao: 29.93 (22-36mm) LVDs: 34.66 (25-40mm) Aortic Root: 27.70 mm Volumes Left Atrial Volume (Systole) LA ESV Index: 50.40 mL/m2 Aortic Valve AoV Peak Wood.: 1.29 m/s AO Peak Gr.: 6.61 mmHg LVOT Max P.64 mmHg AO Mean Gr.: 3.62 mmHg LVOT Mean P.11 mmHg LVOT Max V: 0.81 m/[place] [address] 2 D/M-MODE ECHOCARDIOGRAM Name: MICHAEL HYATT Room: [address] IN M.R.#: [id number] Admission: 09/12/19 Attend Phys: Girish fenton Sa Discharge: Date of : 37 Date of Service: 09/15/19 1700 Report #: [id number] AO V2 VTI: 33.15 cm LVOT Mean V: 0.48 m/s [place] (VTI): 2.01 cm2 LVOT V1 VTI: 19.42 cm AI [place]: 2.08 m/s2 AI PHT: 626.50 ms Mitral Valve E/A Ratio: 0.97 MV Decel. Time: 168.81 ms MV E Max Wood.: 0.79 m/s MV PHT: 48.95 ms MVA (PHT): 4.49 cm2 TDI E/Lateral E': 11.29 E/Medial E': 7.18 Medial E' Wood.: 0.11 m/s Lateral E' Wood.: 0.07 m/s Pulmonary Valve PV Peak Wood.: 0.96 m/s PV Peak Gr.: 3.70 mmHg Tricuspid Valve RAP Estimate: 5.00 mmHg TR Peak Gr.: 43.33 mmHg RVSP: 48.33 mmHg PA Pressure: 48.33 mmHg Left Ventricle The left ventricle is normal size. There is normal LV segmental wall motion. There is normal left ventricular wall thickness. Left ventricular systolic function is normal. The left ventricular ejection fraction is within the normal range. LVEF is 60%. The left ventricular diastolic function is normal. Right Ventricle The right ventricle is normal size. The right ventricular systolic function is normal. Atria Left atrium is moderately dilated. Injection of bubbles documented no interatrial shunt. Right atrium is mildly dilated. Aortic Valve Aortic valve leaflets are mildly thickened. Mild aortic regurgitation. There is no aortic valvular stenosis. Mitral Valve There is mitral annular calcification. [place] [address] 2 D/M-MODE ECHOCARDIOGRAM Name: MICHAEL HYATT Room: [address] IN [facility].#: [id number] Admission: 09/12/19 Attend Phys: Girish fenton Sa Discharge: Date of : 37 Date of Service: 09/15/19 1700 Report #: [id number] regurgitation. No evidence of mitral valve stenosis. Tricuspid Valve The tricuspid valve is normal in structure. Mild tricuspid regurgitation. Pulmonic Valve The pulmonary valve is normal in structure. Moderate pulmonic regurgitation. Great Vessels The aortic root is normal in size. IVC is normal in size and collapses >50% with inspiration. Pericardium There is no pericardial effusion. <Conclusion> The left ventricle is normal size. There is normal left ventricular wall thickness. Left ventricular systolic function is normal. The left ventricular ejection fraction is within the normal range. LVEF is 60%. The right ventricle is normal size. Left atrium is moderately dilated. Right atrium is mildly dilated. Aortic valve leaflets are mildly thickened. Mild aortic regurgitation. There is no aortic valvular stenosis. There is mitral annular calcification. Trace to mild mitral regurgitation. No evidence of mitral valve stenosis. The tricuspid valve is normal in structure. Mild tricuspid regurgitation. IVC is normal in size and collapses >50% with inspiration. There is no pericardial effusion. There is normal LV segmental wall motion. Injection of bubbles documented no interatrial shunt. <ELECTRONICALLY SIGNED> By: Vern Celis MD, FACC 09/15/191699 99 99 Vern Celis MD, FACC /INF
[2019-09-15 21:00] VITALS: BP 160/48
[2019-09-16 00:38] VITALS: BP 109/36
[2019-09-16 04:00] VITALS: BP 121/39
--- NOTE | 2019-09-16 05:12 | NUR ---
PATIENT HAS SLEPT WELL THROUGHOUT MOST OF THE NIGHT. VSS ON RA. NO C/O PAIN. NIH IS 5. PATIENT FORGETFUL AND CONFUSED. PATIENT DOES HAVE HISTORY OF DEMENTIA WELL. IV IN RIGHT FOREARM-SL. ASSESSMENT CHARTED. FALL PRECAUTIONS IN PLACE AND HOURLY ROUNDS MADE. WILL CONTINUE WITH PLAN OF CARE AND NURSING TO MONITOR.
[2019-09-16 08:00] VITALS: BP 120/52
[2019-09-16 11:10] VITALS: BP 121/39
--- NOTE | 2019-09-16 11:13 | NUR ---
Pt discharging back to [facility]. CM faxed dc orders and H&P. Dtr to transport.
--- NOTE | 2019-09-16 11:30 | NUR ---
ASSUMED PT CARE AT 0700, PT A&O TO SELF, FORETFUL BUT PLEASANT. UP WITH WALKER AND ASSIST X1, RA, COMPARISON SHOPPER TRACING SINUS CHEL, FULL ASSESSMENT CHARTED. PT DISCHARGED HOME AT APPROX 1120 WITH DAUGHTER, EDUCATED ON ALL DISCHARGE INSTRUCTIONS INCLUDING MEDICATIONS AND FOLLOW UP APPOINTMENTS. IV AND COMPARISON SHOPPER REMOVED, HOURLY ROUNDING COMPLETED.
--- NOTE | 2019-09-16 12:18 | NUR ---
I have reviewed the documentation by JUAN DANIEL NELSON from 09/16/19 to 09/16/19 and I concur with it. ESTIVEN PACE
[2019-09-16] MEDS ORDERED: MELATONIN10 M5 PO (19:23)
== END 2019-09-16 11:20 | disposition home or self-care (01) | DRG 69 ==
LOC: M.ERS 22:40 → M.TBA-ER 23:43 → M.2W 23:43
PROVIDERS: Emergency Medicine Emergency Medical Services; Psychiatry & Neurology Neurology; ADMIT Family Medicine
DX: G45.9 Transient cerebral ischemic attack, unspecified (principal); D68.59 Other primary thrombophilia; E87.2 Acidosis; F03.90 Unspecified dementia, unspecified severity, without behavioral disturbance, psychotic disturbance, mood disturbance, and anxiety; E11.9 Type 2 diabetes mellitus without complications; E78.5 Hyperlipidemia, unspecified; I10 Essential (primary) hypertension; R29.810 Facial weakness; M19.90 Unspecified osteoarthritis, unspecified site; Z66 Do not resuscitate; T50.905A Adverse effect of unspecified drugs, medicaments and biological substances, initial encounter; I48.91 Unspecified atrial fibrillation; Z79.82 Long term (current) use of aspirin; Z79.899 Other long term (current) drug therapy; Z79.84 Long term (current) use of oral hypoglycemic drugs; Z88.8 Allergy status to other drugs, medicaments and biological substances; Y92.89 Other specified places as the place of occurrence of the external cause

== ENCOUNTER 2020-04-05 13:02 | Inpatient (IN) | payer MEDICARE, OTHER ==
[~2020-04-05] VITALS: Ht 162.6 cm; Wt 67.2 kg
--- NOTE | ~2020-04-05 | EMS ---
[place] [address] EMS Patient Care Report Name: MICHAEL HYATT Room: [address] IN ..#: [id number] Admission: 04/05/20 Attend Phys: Ryne Espinoza MD Discharge: Date of : 37 Report #: [id number] THIS REPORT FOR: //name// Report Transmitted: 04/05/2020 15:32 EMS Care Summary [facility]ident [id number] @ 04/05/2020 12:13 Incident Location [address] Patient MICHAEL HYATT Female, 85 Years 1935 Patient Address [address] [place] [address] Patient History Dementia,Diabetes,Hypertension (HTN),Hyperlipidemia,Gastro-Esophageal Reflux Disease (GERD),Irritable Bowel Syndrome,Anxiety,Dysphagia, Patient Allergies Other drug allergy, Patient Medications Benazepril, Amlodipine, Melatonin, Tramadol, Metformin, Acetaminophen, Lorazepam, Chief Complaint Signs/Symptoms of a Stroke Disposition Transported Lights/[place] Dispatch Reason Stroke/CVA Transported To [facility] Narrative Dispatched: Med 1 was toned for a patient experiencing a stroke. Med 1 responded emergent[place] [address] EMS Patient Care Report Name: MICHAEL HYATT Room: [address] IN [facility]#: [id number] Admission: 04/05/20 Attend Phys: Ryne Espinoza MD Discharge: Date of : 37 Report #: [id number] Chief Complaint/Condition: The patient was found seated in a wheelchair with obvious facial droop. 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 From the angle of assessment, it appeared that the patient had difficulty viewing EMS on her right side (turned entire head to look at EMS). Staff reported history of dementia/Alzheimer's. History of Present Illness/Injury: The patient was on hospice at [facility] for end stage Alzheimer's per staff. At approximately 9-9:30am the patient developed an onset of facial droop with slurred speech/dysarthria. Hospice, the SNF, and family consulted about how to treat the patient. According to staff, the family gave consent for the patient to be treated and transported to [place] just prior to 911 being called. Assessment: The patient was a female in her 80's, A/Ox1, GCS 13 (possibly normal per staff). Airway patent, breathing clear, equal, and regular. CMS present x4 with irregular pulse noted. CPHSS showing positive. See section for further. Reason for Ambulance: Patient transported emergent to [place] per family request. Stroke alert activated in the field. Treatment: EKG showing AFIB with notable artifact. CPHSS positive with incomplete MEND due to patient cooperation. IV therapy established. Blood draw foregone to maintain IV patency due to patient cooperation. Summary: Med 1 arrived on scene at [facility]. EMS awaited staff at the back door while staff arranged for the patient to be brought out to EMS. Patient brought to EMS and assessment performed. Patient transferred into the ambulance. Transport initiated after vitals obtained (lights and sirens). Patient status monitored en route. MEND exam attempted but only partially completed due to patient ability to cooperate. Stroke Alert activated in the field with no further orders. Patient delivered into the ED room 3 per staff direction. Patient sheet transferred to bed and report given to staff. Signatures obtained from staff and patient's daughter. Med 1 gathered paperwork and returned. Initial Vitals @12:26P: 122,R: 14,BP: 119/64,GCS: 13,SpO2: 94,Revised Trauma: 12, @12:57P: 109,R: 18,BP: 124/65,GCS: 13,SpO2: 96,Revised Trauma: 12, @12:37P: 119,R: 16,GCS: 13,SpO2: 92, @12:52P: 124,R: 14,GCS: 13,Glucose: 279,SpO2: 95, @12:42P: 120,R: 14,BP: 122/66,GCS: 13,SpO2: 98,Revised Trauma: 12, Assessments @12:20MENTAL:Confused,Person Oriented,SKIN:HEENT:Head/Face: Facial Droop,Eyes: Right: Other,LUNG SOUNDS:ABDOMEN:PELVIS//GI:EXTREMITIES:Left Arm: [place] [address] EMS Patient Care Report Name: MICHAEL HYATT Room: [address] IN [facility]#: [id number] Admission: 04/05/20 Attend Phys: Ryne Espinoza MD Discharge: Date of : 37 Report #: [id number] Pulse,Right Arm: Weakness,Right Arm: Abnormal Pulse,Right Leg: Weakness,Left Leg: Edema,Left Leg: Weakness,Right Leg: Edema,PULSE:Radial: 2+ Normal,NEURO:Slurred Speech,Facial Droop,Weakness Right-Sided,@12:45MENTAL:Person Oriented,Confused,SKIN:HEENT:Head/Face: Facial Droop,LUNG SOUNDS:ABDOMEN:PELVIS//GI:EXTREMITIES:Left Arm: Abnormal Pulse,Right Arm: Abnormal Pulse,Left Leg: Weakness,Right Leg: Weakness,Right Leg: Edema,Left Leg: Edema,PULSE:Radial: 1+ Thready,NEURO:Facial Droop,Slurred Speech,Weakness Right-Sided, Impression Stroke Procedures @12:41Saline Lock 10cc (20 ga) Site: Forearm-LeftResponse: UnchangedSucceeded@12:30Saline Lock 0cc (20 ga) Site: Antecubital-RightResponse: UnchangedFailed@12:20ALS AssessmentResponse: UnchangedSucceeded@12:42 cc (20 ga) Site: Hand-LeftResponse: UnchangedFailed Timeline 12:13,Call Received 12:13,Dispatched 12:14,En Route 12:16,On Scene 12:20,At Patient 12:20,ALS Assessment,Response: UnchangedSucceeded, 12:26,BP: 119/64 M,PULSE: 122,RR: 14 R,SPO2: 94 Ox,ETCO2: ,BG: ,PAIN: ,GCS: 13, 12:30,Saline Lock 0cc 20 ga Site: Antecubital-Right,Response: UnchangedFailed, 12:30,Depart Scene 12:37,BP: / M,PULSE: 119,RR: 16 R,SPO2: 92 Ox,ETCO2: ,BG: ,PAIN: ,GCS: 13, 12:41,Saline Lock 10cc 20 ga Site: Forearm-Left,Response: UnchangedSucceeded, 12:42,BP: 122/66 M,PULSE: 120,RR: 14 R,SPO2: 98 Ox,ETCO2: ,BG: ,PAIN: ,GCS: 13, 12:42, cc 20 ga Site: Hand-Left,Response: UnchangedFailed, 12:52,BP: / M,PULSE: 124,RR: 14 R,SPO2: 95 Ox,ETCO2: ,B,PAIN: ,GCS: 13, 12:57,BP: 124/65 M,PULSE: 109,RR: 18 R,SPO2: 96 Ox,ETCO2: ,BG: ,PAIN: ,GCS: 13, 13:00,At Destination 13:45,Call Closed Disclaimer v1.1 Copyright 2020 [employer] This EMS Care Summary contains data elements from the applicable legal record (which may be displayed differently). It is designed to provide pertinent information for the following purposes: continuity of care, clinical quality, and state data reporting. The complete legal record is available to ED staff and administrators of the receiving hospital in [employer] Patient Tracker. All data is provided "as is."
--- NOTE | ~2020-04-05 | CON ---
[address] [address] CONSULTATION Name: MICHAEL HYATT Room: [address] ADM IN .R.#: [id number] Admission: 04/05/20 Attend Phys: Ryne Espinoza MD Discharge: Date of : 37 Report #: [id number] THIS REPORT FOR: //name// cc: Garcia Faustin David DO ~ THIS REPORT FOR: //name// CC: Ryne Faustin DATE OF SERVICE: 04/06/2020 HISTORY OF PRESENT ILLNESS: This is an 85-year-old female patient who was evaluated by me for the possibility of stroke. I discussed the patient with Dr. Espinoza, the hospitalist and I discussed the patient with the daughter. Daughter indicated that this patient had some speech difficulty as well as right-sided weakness. She lives in a prison facility. She apparently has dementia. She has been seen by Cardiology for atrial fibrillation. REVIEW OF SYSTEMS: Positive for atrial fibrillation as well as what looks like speech difficulty and she probably has UTI. She does have a history of hypertension and hyperglycemia. That was a relevant 14-point review of system. PAST MEDICAL HISTORY: Positive for dementia. FAMILY HISTORY: Unremarkable. SOCIAL HISTORY: She has a supporting family and she lives in a prison facility. PHYSICAL EXAMINATION: Indicates she is alert. She is responsive. She can talk. She does not know what month it is. She does not follow commands on persistent basis to do any good neurological examination in this patient. She has some weakness in the lower extremities. She is not able to cooperate with the sensory examination. The weakness has been present for several months if not a few years as I understand. IMPRESSION: My impression was that the patient may have had a small stroke because of atrial fibrillation. Because of that, I got an MRI done that showed no stroke. Because of that, there can be multiple other things which can be considered, which include Hutchinson's palsy because she still appeared to have some facial on the right side, encephalopathy caused by UTI. I had a long talk with the daughter. I told her that the options are to do nothing and make her comfort care. The other option is to do an MRI and consider anticoagulation in this patient and the third option [place] [address] CONSULTATION Name: MICHAEL HYATT Room: [address] IN ..#: [id number] Admission: 04/05/20 Attend Phys: Ryne Espinoza MD Discharge: Date of : 37 Report #: [id number] workup in this patient to see if she has any carotid disease, intracranial disease and what the cause of her ambulation difficulty is. Initially, she was inclined to not do anything and just make her comfortable and that was okay with me. Subsequently, I visited her second time and she indicated that she has talked to the daughter and she would like to get an MRI done until MRI shows some contraindication she would like the patient to be on anticoagulation. I discussed with her in detail her options in that regard and this is the option she wants to follow. She does not want any workup of the spine or her ambulation difficulty. Her MRI does not show any stroke and there is no contraindication for starting the patient on anticoagulation. Cardiology can start at any time. She does appear to have a slight facial weakness. That can be monitored. If the facial weakness become significant, then consideration for Hutchinson's palsy can be given and she can be treated accordingly. We will follow up this patient as necessary. More than 15 minutes of time was spent taking care of this patient today and majority of that time was spent counseling and coordinating. Thank you very much for this referral. By: [id number] 1651Pmark Gonzalez MD /nt
[~2020-04-05 13:02] MED LIST changes: +ACETAMINOPHEN500 M1 PO; +ACETAMINOPHEN500 MG PO; +ASPIRIN EC325 M1 PO; +AZO CRANBERRY250 MG PO; +LOPERAMIDE2 MG PO; +MELATONIN10 M5 PO; +NEXIUM 40 MG CA40 M1 PO; +SERTRALINE HCL100 MG PO; +TYLENOL325 M1 PO; +VITAMIN D3250 MC1 PO
[2020-04-05 13:09] VITALS: BP 124/41
[2020-04-05 13:28] LABS: ABSOLUTE BASOPHILS 0.2 thou/uL (0.0-0.2); ABSOLUTE LYMPHOCYTES 2.1 thou/uL (0.8-5.3); ABSOLUTE MONOCYTES 0.8 thou/uL (0.0-1.2); ABSOLUTE NEUTROPHILS 10.2 thou/uL (1.6-8.1); BASOPHILS 1.3 %; EOSINOPHILS 0.3 %; HEMOGLOBIN 9.7 gm/dL (12.0-15.0); LYMPHOCYTES 15.6 %; MCHC 32.5 g/dL (28.0-37.0); MCV 80.1 fL (80.0-100.0); MONOCYTES 5.7 %; NUCLEATED RBCS 0 /100WBC; PLATELET COUNT* 529 thou/uL (150-400); POLYS 77.1 %; RBC 3.74 mil/uL (4.20-5.00); RDW-CV 18.2 % (10.5-14.5); WBC 13.3 thou/uL (4.0-11.0)
[2020-04-05 13:37] LABS: CALCIUM 7.7 mg/dL (8.5-10.1); CREATININE 1.3 mg/dL (0.6-1.3); POTASSIUM 3.9 mmol/L (3.5-5.1); PROTIME 10.7 Seconds (9.20-11.50)
[2020-04-05 13:50] LABS: ALBUMIN 2.5 g/dL (3.4-5.0); TOTAL BILIRUBIN 0.4 mg/dL (<0.1-1.0); TOTAL PROTEIN 6.5 g/dL (6.4-8.2)
[2020-04-05 15:44] VITALS: BP 176/94
[2020-04-05 16:08] VITALS: BP 122/47
[2020-04-05 19:40] VITALS: BP 100/34
[2020-04-05] MEDS ORDERED: DEEP SEA NASAL44 M1 NASAL (23:01)
[2020-04-05] MEDS ORDERED: TRAMADOL 50 MG50 MG PO (23:02)
[2020-04-05] MEDS ORDERED: NORVASC 2.5 MG2.5 M1 PO (23:02)
[2020-04-05] MEDS ORDERED: SEROQUEL 25 MG25 M1 PO (23:11)
[2020-04-05] MEDS ORDERED: LORAZEPAM I2 MG/1 ML PO (23:11)
[2020-04-05] MEDS ORDERED: MSL20MG/ML PO ×2 (23:13→23:14)
[2020-04-06] VITALS: BP 86/34
[2020-04-06 04:00] VITALS: BP 107/50
[2020-04-06 04:34] LABS: ABSOLUTE BASOPHILS 0.1 thou/uL (0.0-0.2); ABSOLUTE EOSINOPHILS 0.2 thou/uL (0.0-0.7); ABSOLUTE MONOCYTES 0.6 thou/uL (0.0-1.2); ABSOLUTE NEUTROPHILS 5.7 thou/uL (1.6-8.1); BASOPHILS 1.2 %; HEMATOCRIT 27.8 % (37.0-47.0); HEMOGLOBIN 9.3 gm/dL (12.0-15.0); LYMPHOCYTES 23.1 %; MCH 26.7 pg (26.0-34.0); MCHC 33.4 g/dL (28.0-37.0); MCV 79.7 fL (80.0-100.0); MONOCYTES 6.8 %; NUCLEATED RBCS 0 /100WBC; PLATELET COUNT* 490 thou/uL (150-400); POLYS 66.9 %; RBC 3.49 mil/uL (4.20-5.00); RDW-CV 18.2 % (10.5-14.5); WBC 8.6 thou/uL (4.0-11.0)
[2020-04-06 04:51] LABS: CALCIUM 7.8 mg/dL (8.5-10.1); CHOLESTEROL 131 mg/dL (<200); CREATININE 1.3 mg/dL (0.6-1.3); HDL CHOLESTEROL 35 mg/dL (>40); LDL CHOLESTEROL 74 mg/dL (<100); TC:HDL 3.7 Ratio (Not establshd); TRIGLYCERIDE 111 mg/dL (<150); VLDL 22 mg/dL (<40)
[2020-04-06 05:20] LABS: SERUM ASSESSMENT CLEAR
[2020-04-06 08:00] VITALS: BP 112/89
--- NOTE | 2020-04-06 10:50 | EKG ---
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1935 Requested By: Wenceslao López Order Number: [id number] MD: Garcia Fiore Measurements Intervals [place] Rate: 120 P: ND: QRS: -26 QRSD: 92 T: 111 QT: 349 QTc: 494 Interpretive Statements Atrial fibrillation Probable LVH with secondary repol abnrm Borderline prolonged QT interval Compared to ECG 09/12/2019 22:47:23 Sinus rhythm no longer present Electronically Signed On 04-06-2020 10:49:46 CDT by Garcia Fiore [email or web address] <ELECTRONICALLY SIGNED> By: Garcia Fiore MD, LOCATED [facility]IN [facility] 04/06/20 1049 1350 1350 Garcia Fiore MD, [facility]ATED [facility] /EPI
[2020-04-06 11:00] VITALS: BP 133/78
[2020-04-06 16:14] VITALS: BP 144/76
[2020-04-06 19:40] VITALS: BP 145/69
[2020-04-07 00:25] VITALS: BP 138/49
[2020-04-07 02:06] LABS: GLYCOHEMOGLOBIN (HGB A1C) 6.7 % (4.8-5.6)
[2020-04-07 08:00] VITALS: BP 148/69
[2020-04-07 11:30] VITALS: BP 140/59
[2020-04-07 16:09] VITALS: BP 129/67
[2020-04-07 20:00] VITALS: BP 140/85
[2020-04-08] VITALS: BP 148/63; BP 172/71
[2020-04-08 04:00] VITALS: BP 149/61
[2020-04-08 04:53] LABS: ABSOLUTE BASOPHILS 0.1 thou/uL (0.0-0.2); ABSOLUTE EOSINOPHILS 0.2 thou/uL (0.0-0.7); ABSOLUTE LYMPHOCYTES 1.9 thou/uL (0.8-5.3); ABSOLUTE MONOCYTES 0.5 thou/uL (0.0-1.2); ABSOLUTE NEUTROPHILS 4.5 thou/uL (1.6-8.1); BASOPHILS 1.4 %; EOSINOPHILS 2.9 %; HEMATOCRIT 29.1 % (37.0-47.0); HEMOGLOBIN 9.6 gm/dL (12.0-15.0); LYMPHOCYTES 26.5 %; MCH 26.4 pg (26.0-34.0); MONOCYTES 6.8 %; MPV 6.8 fl. (7.2-11.1); NUCLEATED RBCS 0 /100WBC; PLATELET COUNT* 520 thou/uL (150-400); POLYS 62.4 %; RBC 3.64 mil/uL (4.20-5.00); RDW-CV 17.5 % (10.5-14.5); WBC 7.3 thou/uL (4.0-11.0)
[2020-04-08 05:16] LABS: ALBUMIN 2.3 g/dL (3.4-5.0); CALCIUM 7.9 mg/dL (8.5-10.1); POTASSIUM 3.4 mmol/L (3.5-5.1); TOTAL BILIRUBIN 0.3 mg/dL (<0.1-1.0); TOTAL PROTEIN 5.5 g/dL (6.4-8.2)
[2020-04-08 08:00] VITALS: BP 164/75
[2020-04-08 12:00] VITALS: BP 142/69
[2020-04-08] MEDS ORDERED: ELIQUIS5 MG PO (13:11)
[2020-04-08] MEDS ORDERED: LANOXIN125 MCG PO (13:13)
[2020-04-08] MEDS ORDERED: NEXIUM40 M2 PO (13:17)
[2020-04-08] MEDS ORDERED: LISINOPRIL2.5 MG PO (13:19)
[2020-04-08] MEDS ORDERED: ZOCOR 20 MG TAB20 M1 PO (13:23)
[2020-04-08 13:30] VITALS: BP 142/69
== END 2020-04-08 14:04 | DRG 64 ==
LOC: M.ERS 13:02 → M.TBA-ER 14:23 → M.2W 14:23
PROVIDERS: Emergency Medicine Emergency Medical Services; ADMIT Internal Medicine; ATTEND Internal Medicine
DX: I63.89 Other cerebral infarction (principal); G93.41 Metabolic encephalopathy; E44.0 Moderate protein-calorie malnutrition; I48.0 Paroxysmal atrial fibrillation; K21.9 Gastro-esophageal reflux disease without esophagitis; K58.9 Irritable bowel syndrome, unspecified; F41.9 Anxiety disorder, unspecified; R13.10 Dysphagia, unspecified; G30.9 Alzheimer's disease, unspecified; F02.80 Dementia in other diseases classified elsewhere, unspecified severity, without behavioral disturbance, psychotic disturbance, mood disturbance, and anxiety; R47.1 Dysarthria and anarthria; B95.8 Unspecified staphylococcus as the cause of diseases classified elsewhere; Z20.828 Contact with and (suspected) exposure to other viral communicable diseases; E11.9 Type 2 diabetes mellitus without complications; E78.5 Hyperlipidemia, unspecified; I10 Essential (primary) hypertension; M19.90 Unspecified osteoarthritis, unspecified site; Z88.8 Allergy status to other drugs, medicaments and biological substances; Z79.899 Other long term (current) drug therapy; Z68.25 Body mass index [BMI] 25.0-25.9, adult